=== PATIENT | female | born 1975 | race Caucasian/White ===

== ENCOUNTER 2024-04-29 19:00 | Emergency (ER) | payer OTHER, SELFPAY ==
[2024-04-29 19:15] VITALS: BP 124/80
[2024-04-29 19:28] LABS: % Basophils 1.3 % (0-2); % Eosinophils 1.6 % (0-6); % Immature Granulocytes 0.2 % (0-0.5); % Lymphocytes 31.3 % (20.5-51.1); % Monocytes 7.2 % (1.7-9.3); % Neutrophils 58.4 % (42.2-75.2); Absolute Basophils 0.1 10^3/uL (0-0.2); Absolute Eosinophils 0.1 10^3/uL (0-0.7); Absolute Monocytes 0.5 10^3/uL (0.1-0.6); Absolute Neutrophils 3.7 10^3/uL (1.4-6.5); Hematocrit 38.2 % (37.0-47.0); Mean Corpuscular Hgb 29.5 pg (27.0-31.0); Mean Corpuscular Volume 86.6 fL (81.0-99.0); Mean Platelet Volume 9.5 fL (7.4-10.4); Nucleated Red Blood Cells % 0 %; Platelet Count 312 10^3/uL (130-400); Red Blood Cell Count 4.41 10^6/uL (4.20-5.40); Red Cell Dist. Width 12.9 % (11.5-14.5); White Blood Cell Count 6.4 10^3/uL (4.8-10.8)
[2024-04-29 19:51] LABS: ALT (SGPT) 19 U/L (0-35); AST (SGOT) 28 U/L (14-36); Albumin 4.5 g/dl (3.5-5.0); Alkaline Phosphatase 68 U/L (38-126); Blood Urea Nitrogen 16 mg/dl (7-17); Calcium 9.9 mg/dl (8.4-10.2); Carbon Dioxide 25 mmol/L (22-30); Chloride 103 mmol/L (98-107); Glucose 89 mg/dl (70-99); Potassium 4.6 mmol/L (3.5-5.1); Sodium 140 mmol/L (135-145); Total Bilirubin 0.3 mg/dl (0.2-1.3); Total Protein 7.7 g/dl (6.3-8.2); eGFR > 60.00
[2024-04-29 20:02] LABS: Urine Albumin Negative (Neg - Trace); Urine Bilirubin Negative (Negative); Urine Character Clear (Clear); Urine Color Yellow; Urine Glucose Negative (Negative); Urine Ketone Negative (Negative); Urine Leukocyte Negative (Negative); Urine Nitrite Negative (Negative); Urine Occult Blood 2+ (Negative); Urine Urobilinogen Negative (Neg - 1+); Urine pH 6.5 (5.0-9.0)
[2024-04-29 20:06] LABS: Beta HCG Quantitative < 2.39 mIU/ml
[2024-04-29 20:09] LABS: Urine Squamous Cell 26-30 /LPF (Few)
[2024-04-29 20:10] LABS: Urine White Cell 0-2 /HPF (0-5)
[2024-04-29 20:11] LABS: Urine Bacteria Few (Negative)
[2024-04-29 22:03] VITALS: BP 121/71; BMI 24.6
--- NOTE | 2024-04-29 23:34 | ED.GENMED ---
History of Present Illness
<FERNANDO Hall - Last Filed: 04/30/24 00:17>
General
Chief Complaint: Abdominal Pain
Source: patient
Time Seen by Provider: 04/29/24 23:33
Nursing documentation reviewed up to this point in time: agreed with
History of Present Illness
History of Present Illness:
Patient is a 49 year old female wit [facility] of UTIs and kidney stones that is presenting to the ED with worsening abdominal pain x 2 months. She states she got an ultrasound 2 months ago for kidney stones and it was negative. She went to a urologist
2 weeks ago who told her she needed a CT. Her appointment is 05/03 but her pain has gotten to bad to handle. Patient describes the pain as sharp stabbing pain that is rated a 9/10 on a pain scale. The pain is not exacerbated with anything it just
comes and goes randomly. She has not tried pain meds and nothing necessarily alleviates symptoms when present. Mild nausea occurs during episodes, but she denies any vomiting. Patient also admits to a mild right flank pain that had the same onset.
She states the pain is dull and not nearly as bad as the abdominal pain. The flank pain also comes and goes randomly. She has also noticed blood in her urine, but denies any dysuria frequency or urgency. Patient denies fever chest pain palpitations
sob changes in bowel movements.
Patient has a history of kidney stones and UTIs as a kid which were treated with medication. She admits to occasional alcohol consumption but denies any tobacco use. Her LMP was 2 weeks ago and was normal. She states she is not sexually active and
there is not a chance she's .
Review of Systems
<FERNANDO Hall - Last Filed: 04/30/24 00:17>
Review of Systems
Allergies reviewed?: Yes
Constitutional: Reports no symptoms
Respiratory: Reports no symptoms
Cardiac: Reports no symptoms
ABD/GI: Reports abdominal pain and nausea
: Reports flank pain and bleeding (hematuria )
Neurological: Reports no symptoms
Phy Exam
<Emanuel Emi, [facility] - Last Filed: 04/30/24 00:17>
General Physical Exam
General Presentation: well appearing
General age: appears stated age
General Habitus: normal
General Mental: alert
Cardiovascular Exam
Cardiovascular Exam: regular rate/rhythm, no edema, no gallop, no JVD, no murmur and normal peripheral pulses
Pulmonary Exam
Pulmonary Exam: lungs clear, no respiratory distress, no rales, chest non tender, no crackles, no rhonchi, no stridor, no wheezing and no cough
Gastrointestinal Exam
Gastrointestinal Exam: normal bowel sounds, soft, no organomegaly, no pulsatile mass, non distended, cva tenderness and tender
Palpation: left upper quadrant: No tenderness, left lower quadrant: Mild tenderness, right upper quadrant: No tenderness and right lower quadrant: No tenderness
Course
<Emanuelnora Middleton [facility] - Last Filed: 04/30/24 00:17>
Orders/Labs/Results
Orders:
Orders
04/29/24 19:22
Beta HCG Quantitative Urgent
Is this a screen?: No
Complete Blood Count/With Diff Urgent
Comprehensive Metabolic Panel Urgent
Urinalysis Urgent
Date Specimen was Collected: 04/29/24
Time Specimen was Collected: 19:18
Urine Microscopic Urgent
Date Specimen was Collected: 04/29/24
Time Specimen was Collected: 19:18
04/30/24 00:17
CT Abd/pelvis W Iv Cont Urgent
Comment:
Reason For Exam: intermittent LLQ pain x weeks-worsening
04/30/24 01:13
US Pelvis W Transvag Combined Urgent
Comment:
Reason For Exam: LLQ pain intermittent-progressive
Abnormal Lab Results
04/29/24
19:22
Urine Occult Blood 2+ A
(Negative)
Urine RBC 7-10 A /HPF
(0-2)
Urine Bacteria Few A
(Negative)
04/29/24 19:22
04/29/24 19:22
Vital Signs
Initial and Last Documented VS:
Initial Vital Signs
Temp Pulse Resp BP Pulse Ox
97.8 F 66 18 124/80 98
04/29/24 19:15 04/29/24 19:15 04/29/24 19:15 04/29/24 19:15 04/29/24 19:15
Last Documented Vital Signs
Temp Pulse Resp BP Pulse Ox
97.8 F 55 16 121/71 98
04/29/24 19:15 04/29/24 22:03 04/29/24 22:03 04/29/24 22:03 04/29/24 22:03
<Emily Mojica, DO - Last Filed: 04/30/24 03:49>
Orders/Labs/Results
Orders:
Orders
04/29/24 19:22
Beta HCG Quantitative Urgent
Is this a screen?: No
Complete Blood Count/With Diff Urgent
Comprehensive Metabolic Panel Urgent
Urinalysis Urgent
Date Specimen was Collected: 04/29/24
Time Specimen was Collected: 19:18
Urine Microscopic Urgent
Date Specimen was Collected: 04/29/24
Time Specimen was Collected: 19:18
04/30/24 00:17
CT Abd/pelvis W Iv Cont Urgent
Comment:
Reason For Exam: intermittent LLQ pain x weeks-worsening
04/30/24 01:13
US Pelvis W Transvag Combined Urgent
Comment:
Reason For Exam: LLQ pain intermittent-progressive
Abnormal Lab Results
04/29/24
19:22
Urine Occult Blood 2+ A
(Negative)
Urine RBC 7-10 A /HPF
(0-2)
Urine Bacteria Few A
(Negative)
04/29/24 19:22
04/29/24 19:22
Vital Signs
Initial and Last Documented VS:
Initial Vital Signs
Temp Pulse Resp BP Pulse Ox
97.8 F 66 18 124/80 98
04/29/24 19:15 04/29/24 19:15 04/29/24 19:15 04/29/24 19:15 04/29/24 19:15
Last Documented Vital Signs
Temp Pulse Resp BP Pulse Ox
97.8 F 55 16 121/71 98
04/29/24 19:15 04/29/24 22:03 04/29/24 22:03 04/29/24 22:03 04/29/24 22:03
<FERNANDO Hall - Last Filed: 04/30/24 00:17>
MDM/Problems Addressed
Differential Diagnosis Includes:
ovarian cyst, ovarian torsion, diverticulitis, nephrolithiasis
MDM/Problems Addressed:
Order CT urine and pelvic ultrasound, give fluids
<FERNANDO Hall - Last Filed: 04/30/24 00:17>
*Critical Care Note
Total Time (30-74mins, 75-104mins- exclusive of procedures): Not Applicable
<Emily Mojica DO - Last Filed: 04/30/24 03:49>
*Radiology
Radiology exam reviewed: radiology read reviewed
*Pulse Oximetry
Patient hypoxic: no
ED Attending Note
<FERNANDO Hall - Last Filed: 04/30/24 00:17>
-
Portions of this chart may have been created with voice recognition software.� Occasional wrong word or��sound alike� substitutions may have occurred due to the inherent limitations of voice recognition software.
<Emily R. Mojica, DO - Last Filed: 04/30/24 03:49>
ED Attending Note
Patient seen and examined by attending physician: Yes
I performed the substantive portion of visit, reviewed & personally made and approve the management plan that is documented in note by myself or SUDHAKAR.: Yes
ED Attending Note:
This is a 49-year-old woman who has a remote history of kidney stones over 10 years ago who complains of at least 3-week history of intermittent left lower quadrant pain. She states she underwent renal ultrasound 3 to 4 weeks ago that was
unremarkable. She has since followed up with urologist and was recommended to undergo CT of the abdomen pelvis which is scheduled for May 03.
Left lower quadrant pain has been accompanied with intermittent nausea without vomiting, no fever no chills, no dysuria and urgency but she has noted scant intermittent hematuria. She denies diarrhea or constipation.
She has also had mild intermittent right flank pain earlier this week. Left lower quadrant pain has been more persistent and worsened over the past 2 to 3 days prompting ED visit.
She has not been taking anything for pain.
Last menstrual period 2 weeks ago, normal and on time.
GENERAL: 49-year-old woman appears her stated age, awake and alert, pleasant, appears in no acute distress.
EYE: anicteric
NECK: Supple, nontender, no meningismus, no significant adenopathy.
ENT: oral mucosa is moist. No rhinorrhea.
CARDIAC: Regular rate and rhythm. no murmur.
LUNGS: Clear breath sounds bilaterally, no acute respiratory distress, no wheezes/rales/rhonchi
ABDOMEN: Soft, nondistended, moderate tenderness left lower quadrant without rebound or guarding nor palpable masses, no r/g, mild bilateral CVA tenderness to percussion, normoactive BS.
NEUROLOGICAL: Alert and oriented x3, no focal neuro deficits. Gait is anthony and steady.
SKIN: Warm and dry, normal color, skin intact. No rash.
MUSCULOSKELETAL: No C/C/E. peripheral pulses are full and equal b/l. No palpable tenderness.
PSYCH: Normal and appropriate interaction.
Concern for ureteric stone, ovarian cyst, ovarian torsion, constipation, UTI. As symptoms have been ongoing without associated fever nor bowel changes, diverticulitis/colitis are much less likely.
Thus far labs are unremarkable�within normal limits. hCG is negative.
Urinalysis shows 7-10 RBCs, few bacteria but only 0-2 WBCs and is a contaminated specimen with 26-30 squamous epithelial cells. This is not consistent with a UTI.
Due to mild microscopic hematuria there could certainly be ureteric stone thus will check CT of the abdomen pelvis but must also consider ovarian cyst and if CT is unrevealing we will plan for pelvic ultrasound.
04/30/2024 0344 AM
CAT scan shows mild to moderate constipation otherwise unremarkable. No renal stone nor mass. No free fluid nor free air. There is a small posterior uterine body fibroid.
Pelvic ultrasound is unremarkable. Small follicles present bilateral ovaries. Vascular flow demonstrated in both ovaries. No free fluid.
Patient resting comfortably, sleeping when undisturbed. Abdomen is soft with only minimal tenderness left lower quadrant with deep palpation only.
Constipation could certainly be cause for her intermittent left lower quadrant pain. Other consideration is abdominal wall muscle strain.
Recommend she start a daily fiber supplement such as Metamucil versus daily MiraLAX.
Discussed importance of staying well-hydrated on a daily basis.
She can take ibuprofen versus Tylenol as needed for pain.
Prompt follow-up with PCP and follow-up with urologist as already scheduled as well.
Discharge Plan
Departure
Patient Disposition: Home (Routine Discharge)
Date of Disposition: 04/30/24
Time of Disposition: 03:48
Patient with high blood pressure during this ER visit?: No
Discharge Problem:
Abdominal pain, LLQ, Constipation
Instructions: Constipation, Adult (DC)
Prescriptions:
No Action
No Current Medications
0
Referrals:
Jigar Dila PA-C [Family Provider] - Call in 1-3 days for appt
Interventions
Interventions:
*Risk Screen - Suicide Last Done: 04/29/24 19:01
*General Assessment Last Done: 04/29/24 22:03
*Neglect/Abuse Screening Last Done: 04/29/24 19:15
ED- Fall Risk Assessment Last Done: 04/29/24 22:03
*ED COVID-19 Vaccine History Last Done: 04/29/24 22:03
RV-Cxxmmp-Evrmbqulnf Assessment Last Done: 04/29/24 22:03
Discharge Date and Time
Print Language: MALAGASY
--- NOTE | 2024-04-30 00:22 | EDRN ---
Gave patient water to fill bladder, aware to call when she is full
[2024-04-30 03:58] VITALS: BP 113/74
== END 2024-04-30 04:02 | disposition home or self-care (01) ==
LOC: EMR 19:00
PROVIDERS: Emergency Medicine; EMERGENCY PHYSICIAN Emergency Medicine; FAMILY PHYSICIAN Physician Assistant
DX: R10.32 Left lower quadrant pain (principal); K59.00 Constipation, unspecified; Z87.440 Personal history of urinary (tract) infections; Z87.442 Personal history of urinary calculi
CPT/HCPCS: 99285; 74177; 76830; 76856; 80053; 81003; 81015; 84702; 85025; Q9967